=== PATIENT | female | born 1970 | race African-American/Black ===

== ENCOUNTER 2016-06-09 20:40 | Emergency (ER) | payer OTHER ==
[~2016-06-09] VITALS: Ht 160 cm; Wt 106.8 kg
[~2016-06-09 20:40] MED LIST: HYDR50TA PO; LOSA50TA37 PO; METH5 PO; OXYC-167 PO
[2016-06-09] MEDS ORDERED: SODIUM CHLORIDE 0.9% 1,000 ML IV ONE (21:30)
[2016-06-09] MEDS ORDERED: OxyCODONE HCL/ACETAMINOPHEN 5-325 MG TABLET PO ONE (21:30)
[2016-06-09 21:34] LABS: EOSINOPHILS % (AUTO) 1.1 % (1.0-6.0); HEMATOCRIT 45.5 % (36-46); HEMOGLOBIN 14.5 g/dL (12.0-16.0); LYMPHOCYTES # (AUTO) 1.5 K/uL (1.0-4.8); LYMPHOCYTES % (AUTO) 9.4 % (22.0-44.0); MEAN CORPUSCULAR HEMOGLOBIN 28.4 pg (26.0-34.0); MEAN CORPUSCULAR HGB CONC 31.9 G/dL (31.0-37.0); MEAN CORPUSCULAR VOLUME 89 fL (80-100); MONOCYTES # (AUTO) 1.2 K/uL (0.1-1.0); MONOCYTES % (AUTO) 7.4 % (2.0-9.0); NEUTROPHILS # (AUTO) 13.4 K/uL (1.8-7.7); NEUTROPHILS % (AUTO) 82.1 % (40.0-70.0); PLATELET COUNT (AUTO) 288 K/uL (150-450); RED BLOOD CELL COUNT(AUTO) 5.12 MIL/uL (4.00-5.20); RED CELL DISTRIBUTION WIDTH 15.6 % (11.5-14.5); WHITE BLOOD COUNT (AUTO) 16.4 K/uL (4.5-11.0)
[2016-06-09 21:43] LABS: ANION GAP 10 mmol/L (8-16); CALCIUM, TOTAL 9.1 mg/dL (8.8-10.5); CARBON DIOXIDE 28 mmol/L (22-29); CHLORIDE 100 mmol/L (98-107); CREATININE 0.94 mg/dL (0.60-1.30); GLOMERULAR FILTR. RATE CALC > 60 mL/min (>60); POTASSIUM 3.8 mmol/L (3.5-5.1); SODIUM SERUM 138 mmol/L (136-145); UREA NITROGEN, BLOOD 17 mg/dL (7-18)
[2016-06-09 21:48] LABS: ALANINE AMINOTRANSFERASE 21 U/L (12-78); ALBUMIN 3.5 g/dL (3.4-5.0); ASPARTATE AMINOTRANSFERASE 17 U/L (15-37); BILIRUBIN,TOTAL 0.3 mg/dL (0.1-1.0); TOTAL PROTEIN, SERUM 8.2 g/dL (6.4-8.2)
[2016-06-09 21:58] LABS: INFLUENZA TYPE B NEGATIVE FOR TYPE B (NEGATIVE)
[2016-06-09] MEDS ORDERED: LEVOFLOXACIN 250 MG TABLET PO ONE (22:15)
[2016-06-09] MEDS ORDERED: KETOROLAC TROMETHAMINE 30 MG/ML VIAL IVP ONE (22:15)
[2016-06-09 22:35] VITALS: BP 152/89
== END 2016-06-09 22:55 | disposition home or self-care (01) ==
LOC: EMS 20:42
DX: J18.9 Pneumonia, unspecified organism (principal); I10 Essential (primary) hypertension; F17.210 Nicotine dependence, cigarettes, uncomplicated
CPT/HCPCS: 36415; 71020; 80053; 85025; 87040; 87804; 96361; 96374; 99285; J1885; J7030

== ENCOUNTER 2016-08-21 17:00 | Emergency (ER) | payer OTHER ==
[~2016-08-21] VITALS: Ht 162.6 cm; Wt 107.7 kg
[~2016-08-21 17:00] MED LIST changes: +BUME1TAB30 PO; +HYDR25TA PO; +IBUP-1547 PO; +LISI-660 PO
[2016-08-21] MEDS ORDERED: HYDROCODONE/ACETAMINOPHEN 10-325 MG TABLET PO ONE (17:45)
[2016-08-21] MEDS ORDERED: PERTUSS(ACELL),DIPH,TET VAC/PF 0.5 ML VIAL IM ONE (18:15)
[2016-08-21] MEDS ORDERED: BACITRACIN 0.9 GM PACKET OINTMENT TP ONE (18:15)
[2016-08-21 18:35] VITALS: BP 145/95
== END 2016-08-21 18:44 | disposition home or self-care (01) ==
LOC: EMS 17:01
DX: S92.531A Displaced fracture of distal phalanx of right lesser toe(s), initial encounter for closed fracture (principal); I10 Essential (primary) hypertension; F17.210 Nicotine dependence, cigarettes, uncomplicated; W20.8XXA Other cause of strike by thrown, projected or falling object, initial encounter; Y93.89 Activity, other specified; Y92.89 Other specified places as the place of occurrence of the external cause; Y99.8 Other external cause status
CPT/HCPCS: 90471; 90715; 99284

== ENCOUNTER 2017-03-07 19:13 | Emergency (ER) | payer OTHER ==
[~2017-03-07] VITALS: Ht 162.6 cm; Wt 104.5 kg
[~2017-03-07 19:13] MED LIST changes: -BUME1TAB30 PO; -HYDR25TA PO; -IBUP-1547 PO; -LISI-660 PO; -OXYC-167 PO
[2017-03-07] MEDS ORDERED: GABA-529 PO (19:30)
[2017-03-07] MEDS ORDERED: BACL10TA PO (19:30)
[2017-03-07 20:32] VITALS: BP 132/86
== END 2017-03-07 20:44 | disposition home or self-care (01) ==
LOC: EMS 19:15
DX: N63.0 Unspecified lump in unspecified breast (principal); I10 Essential (primary) hypertension; F17.210 Nicotine dependence, cigarettes, uncomplicated
CPT/HCPCS: 99283

== ENCOUNTER 2017-07-18 19:43 | Emergency (ER) | payer OTHER ==
[~2017-07-18] VITALS: Ht 162.6 cm; Wt 110.0 kg
[~2017-07-18 19:43] MED LIST changes: +BACL10TA PO; +GABA-529 PO
[2017-07-18] MEDS ORDERED: PERCT10 PO (19:58)
[2017-07-18 20:34] LABS: BASOPHILS % (AUTO) 0.6 % (0.0-2.0); EOSINOPHILS % (AUTO) 2.3 % (1.0-6.0); HEMATOCRIT 39.6 % (36-46); HEMOGLOBIN 13.3 g/dL (12.0-16.0); LYMPHOCYTES # (AUTO) 2.2 K/uL (1.0-4.8); LYMPHOCYTES % (AUTO) 23.7 % (22.0-44.0); MEAN CORPUSCULAR HEMOGLOBIN 29.1 pg (26.0-34.0); MEAN CORPUSCULAR HGB CONC 33.7 G/dL (31.0-37.0); MEAN CORPUSCULAR VOLUME 87 fL (80-100); MONOCYTES # (AUTO) 0.8 K/uL (0.1-1.0); NEUTROPHILS % (AUTO) 64.4 % (40.0-70.0); PLATELET COUNT (AUTO) 282 K/uL (150-450); RED BLOOD CELL COUNT(AUTO) 4.58 MIL/uL (4.00-5.20); RED CELL DISTRIBUTION WIDTH 16.2 % (11.5-14.5)
[2017-07-18 20:42] LABS: APPEARANCE,URINE CLOUDY (CLEAR); GLUCOSE, URINE (UA) NEGATIVE (NEGATIVE); KETONES,URINE TRACE mg/dL (NEGATIVE); LEUKOCYTE ESTERASE ,URINE NEGATIVE (NEGATIVE); NITRATE,URINE NEGATIVE (NEGATIVE); OCCULT BLOOD,URINE NEGATIVE (NEGATIVE); PH,URINE 6.5 (5.0-8.0); PROTEIN,URINE TRACE (NEGATIVE)
[2017-07-18 20:43] LABS: BILIRUBIN,URINE PRELIM. POSITIVE (NEGATIVE)
[2017-07-18 20:44] LABS: ANION GAP 3 mmol/L (8-16); CALCIUM, TOTAL 8.7 mg/dL (8.8-10.5); CARBON DIOXIDE 31 mmol/L (22-29); CHLORIDE 105 mmol/L (98-107); CREATININE 0.97 mg/dL (0.60-1.30); GLOMERULAR FILTR. RATE CALC > 60 mL/min (>60); GLUCOSE,RANDOM 84 mg/dL (70-110); POTASSIUM 4.2 mmol/L (3.5-5.1); SODIUM SERUM 139 mmol/L (136-145); UREA NITROGEN, BLOOD 8 mg/dL (7-18)
[2017-07-18 20:50] LABS: ALANINE AMINOTRANSFERASE 32 U/L (12-78); ALBUMIN 3.3 g/dL (3.4-5.0); ALKALINE PHOSPHATASE 115 U/L (46-116); AMYLASE 24 U/L (25-115); ASPARTATE AMINOTRANSFERASE 17 U/L (15-37); BILIRUBIN,TOTAL 0.4 mg/dL (0.1-1.0); LIPASE 55 U/L (73-393); TOTAL PROTEIN, SERUM 7.4 g/dL (6.4-8.2)
[2017-07-18 21:06] LABS: BACTERIA,URINE Few /HPF (None Seen); RBC,URINE 0-2 /HPF (0-2); SQUAMOUS EPITHELIAL CELL,UR Many /LPF (None Seen); WBC,URINE 0-2 /HPF (0-5)
[2017-07-18 21:07] LABS: MUCUS,URINE Moderate LPF (None Seen)
[2017-07-18] MEDS ORDERED: FentaNYL CITRATE-PF 100 MCG/2 ML VIAL IVP ONE (21:30)
[2017-07-18] MEDS ORDERED: BARIUM SULFATE 0.1% SUSPENSION 450 ML BOTTLE PO ONE (21:30)
[2017-07-18] MEDS ORDERED: SODIUM CHLORIDE 0.9% 1,000 ML IV ONE (21:30)
[2017-07-18] MEDS ORDERED: ONDANSETRON HCL 4 MG/2 ML VIAL IVP ONE (21:30)
[2017-07-18] MEDS ORDERED: IOVERSOL 350 MG/ML 150 ML VIAL ONE (22:55)
[2017-07-19 00:17] VITALS: BP 142/87
== END 2017-07-19 00:19 | disposition left against medical advice (07) ==
LOC: EMS 19:43
DX: K57.32 Diverticulitis of large intestine without perforation or abscess without bleeding (principal); N85.8 Other specified noninflammatory disorders of uterus; K43.9 Ventral hernia without obstruction or gangrene; K42.9 Umbilical hernia without obstruction or gangrene; F17.210 Nicotine dependence, cigarettes, uncomplicated; I10 Essential (primary) hypertension; N83.209 Unspecified ovarian cyst, unspecified side; Z90.710 Acquired absence of both cervix and uterus; Z79.899 Other long term (current) drug therapy
CPT/HCPCS: 36415; 74177; 80053; 81001; 82150; 83690; 84703; 85025; 96361; 96374; 96375; 99285; 99406; J2405; J3010; J7030; Q9967; Z7610

== ENCOUNTER → 2018-05-27 | Emergency (ER) | payer OTHER ==
[~2018-05-27] VITALS: Ht 162.6 cm; Wt 91.8 kg
[~2018-05-27] MED LIST changes: -BACL10TA PO; -GABA-529 PO; +HYDR25TA PO; -HYDR50TA PO; +IOVERSOL 320 MG/ML 100 ML VIAL ONE; -LOSA50TA37 PO; +LOSA50TA64 PO; +PERCT10 PO; +SODIUM CHLORIDE 0.9% 0 ML ONE
[2018-05-27 15:58] LABS: BASOPHILS % (AUTO) 0.5 % (0.0-2.0); EOSINOPHILS % (AUTO) 0.9 % (1.0-6.0); HEMATOCRIT 44.9 % (36-46); HEMOGLOBIN 14.9 g/dL (12.0-16.0); LYMPHOCYTES # (AUTO) 1.7 K/uL (1.0-4.8); LYMPHOCYTES % (AUTO) 12.8 % (22.0-44.0); MEAN CORPUSCULAR HEMOGLOBIN 28.9 pg (26.0-34.0); MEAN CORPUSCULAR HGB CONC 33.1 G/dL (31.0-37.0); MEAN CORPUSCULAR VOLUME 87 fL (80-100); MONOCYTES % (AUTO) 7.4 % (2.0-9.0); NEUTROPHILS # (AUTO) 10.5 K/uL (1.8-7.7); NEUTROPHILS % (AUTO) 78.4 % (40.0-70.0); PLATELET COUNT (AUTO) 256 K/uL (150-450); RED BLOOD CELL COUNT(AUTO) 5.15 MIL/uL (4.00-5.20)
[2018-05-27 16:00] LABS: APPEARANCE,URINE CLOUDY (CLEAR); GLUCOSE, URINE (UA) NEGATIVE (NEGATIVE); KETONES,URINE NEGATIVE (NEGATIVE); LEUKOCYTE ESTERASE ,URINE NEGATIVE (NEGATIVE); NITRATE,URINE NEGATIVE (NEGATIVE); OCCULT BLOOD,URINE NEGATIVE (NEGATIVE); PROTEIN,URINE TRACE (NEGATIVE)
[2018-05-27 16:01] LABS: BILIRUBIN,URINE PRELIM. POSITIVE (NEGATIVE)
[2018-05-27 16:13] LABS: ANION GAP 9 mmol/L (8-16); CALCIUM, TOTAL 9.6 mg/dL (8.8-10.5); CARBON DIOXIDE 28 mmol/L (22-29); CHLORIDE 101 mmol/L (98-107); CREATININE 1.12 mg/dL (0.60-1.30); GLOMERULAR FILTR. RATE CALC > 60 mL/min (>60); GLUCOSE,RANDOM 102 mg/dL (70-110); POTASSIUM 3.7 mmol/L (3.5-5.1); SODIUM SERUM 138 mmol/L (136-145); UREA NITROGEN, BLOOD 15 mg/dL (7-18)
[2018-05-27 16:13] LABS: RBC,URINE None Seen /HPF (0-2)
[2018-05-27 16:14] LABS: BACTERIA,URINE None Seen /HPF (None Seen); SQUAMOUS EPITHELIAL CELL,UR Moderate /LPF (None Seen); WBC,URINE 0-2 /HPF (0-5)
[2018-05-27 16:30] LABS: B-TYPE NATRIURETIC PEPTIDE 12 pg/mL (0-100)
[2018-05-27 16:35] VITALS: BP 138/87
[2018-05-27 16:35] LABS: ALANINE AMINOTRANSFERASE 18 U/L (12-78); ALBUMIN 3.6 g/dL (3.4-5.0); ALKALINE PHOSPHATASE 134 U/L (46-116); ASPARTATE AMINOTRANSFERASE 13 U/L (15-37); BILIRUBIN,TOTAL 0.5 mg/dL (0.1-1.0); CREATINE KINASE, TOTAL ONLY 72 U/L (26-192); HCG,QUANTITATIVE 1 mIU/mL (0-6); TOTAL PROTEIN, SERUM 8.1 g/dL (6.4-8.2)
[2018-05-27] MEDS: KETOROLAC TROMETHAMINE 30 MG/ML VIAL IVP ONE (16:41)
== END | disposition home or self-care (01) ==
LOC: EMS 14:48
DX: R10.32 Left lower quadrant pain (principal); I10 Essential (primary) hypertension; F17.210 Nicotine dependence, cigarettes, uncomplicated; Z90.710 Acquired absence of both cervix and uterus
CPT/HCPCS: 36415; 71045; 80053; 81001; 82550; 83880; 84484; 84702; 85025; 85610; 85730; 93005; 96374; 99285; J1885; J7050

== ENCOUNTER 2021-02-20 14:19 | Emergency (ER) | payer OTHER ==
[~2021-02-20] VITALS: Ht 162.6 cm; Wt 118.2 kg
[~2021-02-20 14:19] MED LIST changes: +CIPR-278 PO; +HYDR-4072 PO; -HYDR25TA PO; +HYDR25TA2 PO; -IOVERSOL 320 MG/ML 100 ML VIAL ONE; -LOSA50TA64 PO; -METH5 PO; +METR500 PO; -PERCT10 PO; -SODIUM CHLORIDE 0.9% 0 ML ONE
[2021-02-20 16:14] LABS: BASOPHILS % (AUTO) 0.5 % (0.0-2.0); EOSINOPHILS % (AUTO) 3.5 % (1.0-6.0); HEMATOCRIT 36.4 % (36-46); HEMOGLOBIN 12.1 g/dL (12.0-16.0); LYMPHOCYTES # (AUTO) 1.9 K/uL (1.0-4.8); LYMPHOCYTES % (AUTO) 21.5 % (22.0-44.0); MEAN CORPUSCULAR HEMOGLOBIN 28.9 pg (26.0-34.0); MEAN CORPUSCULAR HGB CONC 33.2 G/dL (31.0-37.0); MEAN CORPUSCULAR VOLUME 87 fL (80-100); MONOCYTES # (AUTO) 0.7 K/uL (0.1-1.0); MONOCYTES % (AUTO) 8.2 % (2.0-9.0); NEUTROPHILS # (AUTO) 5.8 K/uL (1.8-7.7); NEUTROPHILS % (AUTO) 66.3 % (40.0-70.0); PLATELET COUNT (AUTO) 290 K/uL (150-450); RED BLOOD CELL COUNT(AUTO) 4.19 MIL/uL (4.00-5.20); RED CELL DISTRIBUTION WIDTH 16.7 % (11.5-14.5)
[2021-02-20 16:33] LABS: INR 0.9 (0.9-1.1); PROTHROMBIN TIME 10.1 SEC (9.4-11.6)
[2021-02-20 16:39] LABS: ANION GAP 3 mmol/L (8-16); CALCIUM, TOTAL 9.5 mg/dL (8.8-10.5); CARBON DIOXIDE 34 mmol/L (22-29); CHLORIDE 102 mmol/L (98-107); CREATININE 1.01 mg/dL (0.60-1.30); GLOMERULAR FILTR. RATE CALC > 60 mL/min (>60); GLUCOSE,RANDOM 111 mg/dL (70-110); POTASSIUM 3.5 mmol/L (3.5-5.1); SODIUM SERUM 139 mmol/L (136-145); UREA NITROGEN, BLOOD 14 mg/dL (7-18)
[2021-02-20 16:50] LABS: ALANINE AMINOTRANSFERASE 32 U/L (12-78); ALBUMIN 3.7 g/dL (3.4-5.0); ALKALINE PHOSPHATASE 147 U/L (46-116); ASPARTATE AMINOTRANSFERASE 19 U/L (15-37); BILIRUBIN,TOTAL 0.4 mg/dL (0.1-1.0); HCG,QUANTITATIVE 4 mIU/mL (0-6)
[2021-02-20 18:06] LABS: APPEARANCE,URINE CLOUDY (CLEAR); BILIRUBIN,URINE NEGATIVE (NEGATIVE); GLUCOSE, URINE (UA) NEGATIVE (NEGATIVE); KETONES,URINE NEGATIVE (NEGATIVE); LEUKOCYTE ESTERASE ,URINE SMALL (NEGATIVE); NITRATE,URINE NEGATIVE (NEGATIVE); OCCULT BLOOD,URINE LARGE (NEGATIVE); PROTEIN,URINE TRACE (NEGATIVE)
[2021-02-20] MEDS ORDERED: IOHEXOL 350 MG/ML 100 ML VIAL ONE (18:51)
[2021-02-20] MEDS ORDERED: SODIUM CHLORIDE 0.9% 100 ML ONE (18:51)
[2021-02-20] MEDS ORDERED: ACETAMINOPHEN 500 MG TABLET PO ONE (19:00)
[2021-02-20 19:15] LABS: BACTERIA,URINE None Seen /HPF (None Seen); SQUAMOUS EPITHELIAL CELL,UR Few /LPF (None Seen)
[2021-02-20] MEDS ORDERED: OxyCODONE HCL 5 MG IR TABLET PO ONE (22:45)
[2021-02-20] MEDS ORDERED: ACETAMINOPHEN 325 MG TABLET PO PRN ×2 (23:30→23:45)
[2021-02-20] MEDS ORDERED: ONDANSETRON HCL 4 MG/2 ML VIAL IVP PRN ×2 (23:30→23:45)
[2021-02-20] MEDS ORDERED: 0.9% SODIUM CHLORIDE 10 ML SYRINGE IVP PRN (23:30)
[2021-02-20] MEDS ORDERED: ASPI-1444 PO (23:40)
[2021-02-20] MEDS ORDERED: METH5 PO (23:40)
[2021-02-20] MEDS ORDERED: FAMO40TA7 PO (23:40)
[2021-02-20] MEDS ORDERED: METO25 PO (23:40)
[2021-02-20] MEDS ORDERED: HYDR50TA PO (23:40)
[2021-02-20] MEDS ORDERED: LOSA100T58 PO (23:40)
[2021-02-20] MEDS ORDERED: CHOL200074 PO (23:40)
[2021-02-20] MEDS ORDERED: TICA90TA PO (23:40)
[2021-02-20] MEDS ORDERED: ATOR40TA71 PO (23:40)
[2021-02-20] MEDS ORDERED: OXYC-618 PO (23:40)
[2021-02-20] MEDS ORDERED: IPRATROPIUM BROMIDE 0.5 MG/2.5 ML NEB SOLUTION NEB PRN (23:45)
[2021-02-20] MEDS ORDERED: HYDROCODONE/ACETAMINOPHEN 5-325 MG TABLET PO PRN (23:45)
[2021-02-20] MEDS ORDERED: MORPHINE SULFATE 2 MG/ML SYRINGE IVP PRN (23:45)
[2021-02-20] MEDS ORDERED: ALBUTEROL SULFATE 2.5 MG/0.5 ML NEB SOLUTION NEB PRN (23:45)
[2021-02-20] MEDS ORDERED: MAGNESIUM HYDROXIDE SUSPENSION 30 ML UDCUP PO PRN (23:45)
[2021-02-20] MEDS ORDERED: BISACODYL 10 MG RECTAL RECTAL SUPPOSITORY PR PRN (23:45)
[2021-02-20] MEDS ORDERED: ZOLPIDEM TARTRATE 5 MG TABLET PO PRN (23:45)
[2021-02-21 07:07] VITALS: BP 136/76
[2021-02-21] MEDS ORDERED: PEG 3350/NA SULF,BICARB,CL/KCL 4000 ML SOLUTION PO ONE (07:15)
[2021-02-21] MEDS ORDERED: DOCUSATE SODIUM 100 MG CAPSULE PO SCH (09:00)
[2021-02-21] MEDS ORDERED: PANTOPRAZOLE SODIUM 40 MG/VIAL IVP SCH (09:00)
== END 2021-02-21 09:12 | disposition home or self-care (01) ==
LOC: EMS 15:24
DX: N32.1 Vesicointestinal fistula (principal); I10 Essential (primary) hypertension; I25.2 Old myocardial infarction; I25.10 Atherosclerotic heart disease of native coronary artery without angina pectoris; F17.210 Nicotine dependence, cigarettes, uncomplicated; Z79.899 Other long term (current) drug therapy
CPT/HCPCS: 36415; 74177; 80053; 81001; 82271; 84702; 85025; 85610; 85730; 96374; 99285; J2270; J7050; Q9967

== ENCOUNTER 2021-11-08 15:05 | Emergency (ER) | payer OTHER ==
[~2021-11-08] VITALS: Ht 162.6 cm; Wt 100.1 kg
[~2021-11-08 15:05] MED LIST changes: +ASPI-1444 PO; +ATOR40TA71 PO; +CHOL200074 PO; +FAMO40TA7 PO; +HYDR50TA PO; +LOSA100T58 PO; +METH5 PO; +METO25 PO; +OXYC-618 PO; +TICA90TA PO
[2021-11-08 16:39] VITALS: BP 136/96
[2021-11-08] MEDS ORDERED: IBUPROFEN 400 MG TABLET PO ONE (16:45)
[2021-11-08] MEDS ORDERED: BUPR1PAT20 TD (16:48)
[2021-11-08] MEDS ORDERED: ATOR20TA65 PO (16:48)
[2021-11-08] MEDS ORDERED: FAMO20TA8 PO (16:48)
== END 2021-11-08 17:43 | disposition home or self-care (01) ==
LOC: EMS 15:10
DX: M79.10 Myalgia, unspecified site (principal); I25.10 Atherosclerotic heart disease of native coronary artery without angina pectoris; I10 Essential (primary) hypertension; F17.210 Nicotine dependence, cigarettes, uncomplicated; Z86.79 Personal history of other diseases of the circulatory system; Z87.09 Personal history of other diseases of the respiratory system; Z87.19 Personal history of other diseases of the digestive system; Z87.42 Personal history of other diseases of the female genital tract; Z86.69 Personal history of other diseases of the nervous system and sense organs; Z90.710 Acquired absence of both cervix and uterus; Z98.890 Other specified postprocedural states; V43.52XA Car driver injured in collision with other type car in traffic accident, initial encounter; Y93.89 Activity, other specified; Y92.411 Interstate highway as the place of occurrence of the external cause; Y99.8 Other external cause status
CPT/HCPCS: 99283

== ENCOUNTER 2022-03-27 16:49 | Emergency (ER) | payer OTHER ==
[~2022-03-27] VITALS: Ht 160 cm; Wt 108.0 kg
[~2022-03-27 16:49] MED LIST changes: +ATOR20TA65 PO; -ATOR40TA71 PO; +BUPR1PAT20 TD; -CIPR-278 PO; +FAMO20TA8 PO; -FAMO40TA7 PO; -HYDR-4072 PO; -HYDR25TA2 PO; -METR500 PO
[2022-03-27 18:10] LABS: APPEARANCE,URINE HAZY (CLEAR); BILIRUBIN,URINE NEGATIVE (NEGATIVE); GLUCOSE, URINE (UA) NEGATIVE (NEGATIVE); KETONES,URINE NEGATIVE (NEGATIVE); LEUKOCYTE ESTERASE ,URINE NEGATIVE (NEGATIVE); NITRATE,URINE NEGATIVE (NEGATIVE); OCCULT BLOOD,URINE NEGATIVE (NEGATIVE); PROTEIN,URINE 30-70 mg/dL (NEGATIVE); SPECIFIC GRAVITIY, URINE 1.023 (1.003-1.030)
[2022-03-27 18:37] LABS: BACTERIA,URINE None Seen /HPF (None Seen); SQUAMOUS EPITHELIAL CELL,UR Moderate /LPF (None Seen); WBC,URINE None Seen /HPF (0-5)
[2022-03-27] MEDS ORDERED: SODIUM CHLORIDE 0.9% 1,000 ML IV ONE (19:00)
[2022-03-27] MEDS ORDERED: MORPHINE SULFATE 4 MG/ML SYRINGE IVP ONE (19:00)
[2022-03-27 19:49] LABS: BASOPHILS % (AUTO) 0.4 % (0.0-2.0); EOSINOPHILS % (AUTO) 0.4 % (1.0-6.0); HEMATOCRIT 38.5 % (36-46); HEMOGLOBIN 12.2 g/dL (12.0-16.0); LYMPHOCYTES # (AUTO) 2.1 K/uL (1.0-4.8); LYMPHOCYTES % (AUTO) 11.6 % (22.0-44.0); MEAN CORPUSCULAR HGB CONC 31.6 G/dL (31.0-37.0); MEAN CORPUSCULAR VOLUME 89 fL (80-100); MONOCYTES # (AUTO) 1.4 K/uL (0.1-1.0); MONOCYTES % (AUTO) 8.2 % (2.0-9.0); NEUTROPHILS % (AUTO) 79.4 % (40.0-70.0); PLATELET COUNT (AUTO) 367 K/uL (150-450); RED BLOOD CELL COUNT(AUTO) 4.34 MIL/uL (4.00-5.20); RED CELL DISTRIBUTION WIDTH 17.6 % (11.5-14.5)
[2022-03-27 19:58] LABS: ANION GAP 6 mmol/L (8-16); CALCIUM, TOTAL 9.1 mg/dL (8.8-10.5); CARBON DIOXIDE 30 mmol/L (22-29); CHLORIDE 101 mmol/L (98-107); CREATININE 0.99 mg/dL (0.60-1.30); GLOMERULAR FILTR. RATE CALC > 60 mL/min (>60); GLUCOSE,RANDOM 107 mg/dL (70-110); POTASSIUM 3.6 mmol/L (3.5-5.1); SODIUM SERUM 137 mmol/L (136-145); UREA NITROGEN, BLOOD 14 mg/dL (7-18)
[2022-03-27 20:01] LABS: PROTHROMBIN TIME 10.9 SEC (9.4-11.6)
[2022-03-27 20:04] LABS: ALANINE AMINOTRANSFERASE 18 U/L (12-78); ALBUMIN 3.1 g/dL (3.4-5.0); ALKALINE PHOSPHATASE 137 U/L (46-116); ASPARTATE AMINOTRANSFERASE 14 U/L (15-37); BILIRUBIN,TOTAL 0.8 mg/dL (0.1-1.0); TOTAL PROTEIN, SERUM 7.8 g/dL (6.4-8.2)
[2022-03-27] MEDS ORDERED: IOHEXOL 350 MG/ML 100 ML VIAL ONE (20:14)
[2022-03-27] MEDS ORDERED: SODIUM CHLORIDE 0.9% 100 ML ONE (20:14)
[2022-03-27] MEDS ORDERED: HYDROmorphone HCL 2 MG/ML SYRINGE IVP ONE ×2 (21:00→23:00)
[2022-03-27] MEDS ORDERED: PIPERACILLIN SODIUM/TAZOBACTAM 4.5 GM in DEXTROSE 5%-WATER 100 ML IV ONE (22:15)
[2022-03-27 23:00] LABS: COVID AG,FIA SOURCE NASAL SWAB
[2022-03-28] MEDS ORDERED: ONDANSETRON HCL 4 MG/2 ML VIAL IVP ONE (02:30)
[2022-03-28] MEDS ORDERED: HYDROmorphone HCL 2 MG/ML SYRINGE IVP ONE ×2 (02:30→05:00)
[2022-03-28 05:18] VITALS: BP 123/71
== END 2022-03-28 06:09 | disposition short-term general hospital (02) ==
LOC: EMS 16:53
DX: K57.20 Diverticulitis of large intestine with perforation and abscess without bleeding (principal); I10 Essential (primary) hypertension; I25.10 Atherosclerotic heart disease of native coronary artery without angina pectoris; I25.2 Old myocardial infarction; F17.210 Nicotine dependence, cigarettes, uncomplicated; Z90.710 Acquired absence of both cervix and uterus; Z20.822 Contact with and (suspected) exposure to COVID-19
CPT/HCPCS: 99285; 74177; 96365; 96375 ×2; 96361; 87426; 80053; 81001; 85025; 85610; 85730; 87040; 36415; 96376; J1170 ×2; J2270; J2543; Q9967; J7060; J7030; J7050; J2405

== ENCOUNTER 2023-02-23 20:58 | Emergency (ER) | payer OTHER ==
[~2023-02-23] VITALS: Ht 160 cm; Wt 116.0 kg
[~2023-02-23 20:58] MED LIST changes: -ASPI-1444 PO; -ATOR20TA65 PO; -BUPR1PAT20 TD; -LOSA100T58 PO; +LOSA100T59 PO; -METO25 PO; -TICA90TA PO
[2023-02-23 21:12] VITALS: TEMP 98.3
[2023-02-23 21:51] LABS: BASOPHILS % (AUTO) 1.2 % (0.0-2.0); HEMATOCRIT 37.3 % (36-46); HEMOGLOBIN 11.7 g/dL (12.0-16.0); LYMPHOCYTES # (AUTO) 2.6 K/uL (1.0-4.8); LYMPHOCYTES % (AUTO) 18.7 % (22.0-44.0); MEAN CORPUSCULAR HEMOGLOBIN 23.3 pg (26.0-34.0); MEAN CORPUSCULAR HGB CONC 31.4 G/dL (31.0-37.0); MEAN CORPUSCULAR VOLUME 74 fL (80-100); MONOCYTES # (AUTO) 1.3 K/uL (0.1-1.0); NEUTROPHILS # (AUTO) 9.8 K/uL (1.8-7.7); NEUTROPHILS % (AUTO) 70.1 % (40.0-70.0); PLATELET COUNT (AUTO) 516 K/uL (150-450); RED BLOOD CELL COUNT(AUTO) 5.03 MIL/uL (4.00-5.20); RED CELL DISTRIBUTION WIDTH 24.3 % (11.5-14.5); WHITE BLOOD COUNT (AUTO) 13.9 K/uL (4.5-11.0)
[2023-02-23 22:03] LABS: COVID AG,FIA SOURCE NASAL SWAB
[2023-02-23 22:04] LABS: ANION GAP 12 mmol/L (8-16); CALCIUM, TOTAL 9.8 mg/dL (8.8-10.5); CARBON DIOXIDE 27 mmol/L (22-29); CHLORIDE 102 mmol/L (98-107); CREATININE 1.07 mg/dL (0.60-1.30); GLOMERULAR FILTR. RATE CALC > 60 mL/min (>60); GLUCOSE,RANDOM 93 mg/dL (70-110); POTASSIUM 4.1 mmol/L (3.5-5.1); SODIUM SERUM 141 mmol/L (136-145); UREA NITROGEN, BLOOD 16 mg/dL (7-18)
[2023-02-23 22:10] LABS: ALANINE AMINOTRANSFERASE 25 U/L (12-78); ALBUMIN 4.3 g/dL (3.4-5.0); ALKALINE PHOSPHATASE 125 U/L (46-116); ASPARTATE AMINOTRANSFERASE 20 U/L (15-37); BILIRUBIN,TOTAL 0.5 mg/dL (0.1-1.0); TOTAL PROTEIN, SERUM 8.5 g/dL (6.4-8.2)
[2023-02-23 22:27] LABS: SARS-COV2 (COVID) ANTIGEN,FIA Negative (Negative)
[2023-02-23 22:30] LABS: INFLUENZA TYPE A NEGATIVE FOR TYPE A (NEGATIVE); INFLUENZA TYPE B NEGATIVE FOR TYPE B (NEGATIVE)
[2023-02-23 22:56] LABS: IRON, SERUM 30 mcg/dL (50-175)
[2023-02-23 23:24] LABS: TROPONIN I-HIGH SENSITIVITY 9 ng/L (<51)
[2023-02-24] MEDS ORDERED: MORPHINE SULFATE 4 MG/ML SYRINGE IVP ONE (01:30)
[2023-02-24] MEDS ORDERED: ONDANSETRON HCL 4 MG/2 ML VIAL IVP ONE (01:30)
[2023-02-24 01:49] VITALS: BP 143/95; PULSE 96; RESP 17
== END 2023-02-24 02:06 | disposition home or self-care (01) ==
LOC: EMS 21:00
DX: R10.84 Generalized abdominal pain (principal); D50.9 Iron deficiency anemia, unspecified; I25.10 Atherosclerotic heart disease of native coronary artery without angina pectoris; I10 Essential (primary) hypertension; F17.210 Nicotine dependence, cigarettes, uncomplicated; Z90.710 Acquired absence of both cervix and uterus; Z98.890 Other specified postprocedural states; Z20.822 Contact with and (suspected) exposure to COVID-19
CPT/HCPCS: 99285; 74176; 71045; 87426; 80053; 83540; 84484; 85025; 87804; 36415; 93005; 96374; 96375; J2270; J2405

== ENCOUNTER 2024-10-10 21:25 | Emergency (ER) | payer OTHER ==
[~2024-10-10] VITALS: Ht 160 cm; Wt 118.2 kg
[2024-10-10 21:26] VITALS: TEMP 97.5
[2024-10-10 22:06] LABS: PLATELET COUNT (AUTO) 278 K/uL (150-450); RED BLOOD CELL COUNT(AUTO) 4.99 MIL/uL (4.00-5.20); RED CELL DISTRIBUTION WIDTH 18.5 % (11.5-14.5); WHITE BLOOD COUNT (AUTO) 11.9 K/uL (4.5-11.0)
[2024-10-10 22:20] LABS: CALCIUM, TOTAL 8.6 mg/dL (8.8-10.5); CREATININE 1.13 mg/dL (0.60-1.30); GLOMERULAR FILTR. RATE CALC > 60 mL/min (>60); GLUCOSE,RANDOM 102 mg/dL (70-110); SODIUM SERUM 137 mmol/L (136-145); UREA NITROGEN, BLOOD 15 mg/dL (7-18)
[2024-10-10 22:23] LABS: APPEARANCE,URINE HAZY (CLEAR); GLUCOSE, URINE (UA) NEGATIVE (NEGATIVE); LEUKOCYTE ESTERASE ,URINE NEGATIVE (NEGATIVE); NITRATE,URINE NEGATIVE (NEGATIVE); OCCULT BLOOD,URINE NEGATIVE (NEGATIVE); SPECIFIC GRAVITIY, URINE 1.036 (1.003-1.030)
[2024-10-10 22:27] LABS: TROPONIN I-HIGH SENSITIVITY 13 ng/L (<51)
[2024-10-10] MEDS: FAMOTIDINE 20 MG/2 ML VIAL IVP ONE (23:17)
[2024-10-10] MEDS: MORPHINE SULFATE 2 MG/ML SYRINGE IVP ONE (23:17)
[2024-10-10] MEDS: SODIUM CHLORIDE 0.9% 1,000 ML IV ONE (23:17)
[2024-10-10 23:26] LABS: ASPARTATE AMINOTRANSFERASE 17.0 U/L (15-37); TOTAL PROTEIN, SERUM 7.4 g/dL (6.4-8.2)
[2024-10-11 00:01] LABS: TROPONIN I-HIGH SENSITIVITY 14 ng/L (<51)
[2024-10-11] MEDS: MORPHINE SULFATE 2 MG/ML SYRINGE IVP ONE (00:24)
[2024-10-11] MEDS: PIPERACILLIN/TAZO 3.375 GM/D5W 50 ML IV ONE (01:10)
[2024-10-11] MEDS ORDERED: ONDANSETRON HCL 4 MG/2 ML VIAL IVP PRN (01:15)
[2024-10-11] MEDS ORDERED: ACETAMINOPHEN 325 MG TABLET PO PRN (01:15)
[2024-10-11] MEDS ORDERED: MORPHINE SULFATE 2 MG/ML SYRINGE IVP PRN (01:15)
[2024-10-11] MEDS ORDERED: MAGNESIUM HYDROXIDE SUSPENSION 30 ML UDCUP PO PRN (01:15)
[2024-10-11] MEDS ORDERED: SODIUM CHLORIDE 0.9% 1,000 ML IV ONE (01:30)
[2024-10-11 02:08] VITALS: BP 151/89; PULSE 81; RESP 16; O2SAT 99
[2024-10-11] MEDS ORDERED: PIPERACILLIN/TAZO 3.375 GM/D5W 50 ML IV SCH (09:00)
[2024-10-11] MEDS ORDERED: DOCUSATE SODIUM 100 MG CAPSULE PO SCH (09:00)
[2024-10-11] MEDS ORDERED: PANTOPRAZOLE SODIUM 40 MG/VIAL IVP SCH (09:00)
== END 2024-10-11 02:33 | disposition left against medical advice (07) ==
LOC: EMS 21:25
DX: K80.50 Calculus of bile duct without cholangitis or cholecystitis without obstruction (principal); I10 Essential (primary) hypertension; I25.10 Atherosclerotic heart disease of native coronary artery without angina pectoris; F17.210 Nicotine dependence, cigarettes, uncomplicated; Z95.5 Presence of coronary angioplasty implant and graft; Z90.710 Acquired absence of both cervix and uterus; Z53.29 Procedure and treatment not carried out because of patient's decision for other reasons; Z79.899 Other long term (current) drug therapy
CPT/HCPCS: 99285; 96375 ×2; 76705; 96361; 71045; 80048; 80076; 81003; 83690; 84484; 85025; 87040; 93005; 96365; 96376; 36415; J3490; J0360 ×2; J2270 ×2; J7030; J1171; J2543